=== PATIENT | female | born 1960 | race Caucasian/White ===

== ENCOUNTER → 2018-04-22 | Outpatient (CLI) | payer OTHER ==
[~2018-04-22] MED LIST: ACET500 PO; ALEVE220 MG PO; ALPR.25 PO; ALPR.5 PO; ARIP10; ARIP10 PO; ARIP15; ASPI325EC PO; BENADRYL PO; BUPR150ER PO; BUPR150T2; BUPR150T2 PO; BUSP10; Budeprion Xl300 MG PO; CALCAVITDA; CEPH500 PO; CLON1; CLOT1TC TOP; CYCL10 PO; DOCU100 PO; FISH1000; FURO20 PO; GABA300 PO; GABA400 PO; HYDACE5 PO; HYDPAM25 PO; HYDPAM50; K-Dur10 MEQ; LISI20 PO; LORA1 PO; Lisinopril2.5 MG PO; Loxapine10 MG PO; Loxapine5 MG; METO10 PO; Mobic7.5 MG PO; NAPR500 PO; NAPR550 PO; Norco 5-325 Ta1 EACH PO; OXCA300; OXYACE5T PO; PENVK500 PO; POTCHL10ER PO; Percocet 5-3251 EACH PO; ROXICODONE5 MG PO; RXCYCL10 PO; RXHYDACE PO; RXPENVK250 PO; RXTRAM50 PO; TRAM50 PO; TRIH2; Trihexyphenidyl5 MG PO
[2018-04-25 14:08] LABS: HPV 16 Negative (Negative); HPV 18 Negative (Negative); HPV OTHER HR TYPES Negative (Negative)
== END ==
LOC: LAB 14:51 → LAB SHORT 14:51
PROVIDERS: Nurse Practitioner Women's Health
DX: Z12.4 Encounter for screening for malignant neoplasm of cervix (principal); Z91.89 Other specified personal risk factors, not elsewhere classified
CPT/HCPCS: 87624; G0123

== ENCOUNTER → 2018-06-17 | Outpatient (CLI) | payer OTHER ==
[2018-06-19 15:07] LABS: COTININE Negative ng/mL ({null, Cutoff=300})
== END | disposition home or self-care (01) ==
LOC: LAB 10:20 → LAB SHORT 10:20
PROVIDERS: Podiatrist Foot & Ankle Surgery
DX: F17.210 Nicotine dependence, cigarettes, uncomplicated (principal)

== ENCOUNTER 2018-07-21 12:24 | Day surgery (SDC) | payer OTHER ==
[~2018-07-21] VITALS: Ht 160 cm; Wt 104.8 kg
[2018-07-21] MEDS ORDERED: TRAM50 (13:17)
[2018-07-21] MEDS ORDERED: CYCL10 (13:17)
[2018-07-21] MEDS ORDERED: MONT10T (13:18)
[2018-07-21] MEDS ORDERED: DICMIS50EC (13:18)
[2018-07-21] MEDS ORDERED: CHLO25B (13:18)
--- NOTE | 2018-07-21 13:28 | NUR ---
07/21/18 1328 Demetrius Pruitt 1ST IV IN LAC UNSUCCESSFUL, ORSC.BDK 2ND IV ATTEMPT IN LH SUCCESSFUL, ORSC.RXS
--- NOTE | 2018-07-21 14:13 | NUR ---
07/21/18 1413 Anjelica Romero GIVEN AT [address] RANJEET FISCHER FOR EXPIRATORY WHEEZES. LUNGS CLEAR T/O POST BREATHING TX. PT VSS, AND DENIES PAIN AND NAUSEA AT THIS TIME.
--- NOTE | 2018-07-21 15:03 | NUR ---
07/21/18 1503 Anjelica Romero LATE ENTRY PT INTO RECLINER AT 1416, STEADY DURIGN TRANSFER. MOM AT CHAIRSIDE. PT TOLERATING PO NOURISHMENT WELL. DENIES PAIN/NAUSEA AT THIS TIME. VSS. OPERATIVE LEG ELEVATED WITH PILLOW AND ICE FOR COMFORT. CALL LIGHT IN REACH. 1430 DISCUSSED DC INSTRUCTIONS WITH PT AND MOM, ANSWERED QUESTIONS AND DCD TO HOME VIA WC.
== END 2018-07-21 14:51 | disposition home or self-care (01) ==
LOC: ORSCSDS 12:24
PROVIDERS: Podiatrist Foot & Ankle Surgery
PROC: 0JBN0ZZ Excision of Right Lower Leg Subcutaneous Tissue and Fascia, Open Approach (ICD-10-PCS; principal; 2018-07-21 14:00)
DX: D17.79 Benign lipomatous neoplasm of other sites (principal); M79.7 Fibromyalgia; F20.9 Schizophrenia, unspecified; J45.909 Unspecified asthma, uncomplicated; F41.8 Other specified anxiety disorders; Z79.899 Other long term (current) drug therapy; F17.210 Nicotine dependence, cigarettes, uncomplicated
CPT/HCPCS: 88304; J0690; J1100; J1885; J2250; J2405; J2704; J3010; J7120

== ENCOUNTER 2018-10-10 06:06 | Day surgery (SDC) | payer OTHER ==
[~2018-10-10] VITALS: Ht 160 cm; Wt 104.9 kg
[~2018-10-10 06:06] MED LIST changes: +CHLO25B; +CHLO25B PO; +CYCL10; +DICLO GEL 1%-X1 EACH TOP; +DICMIS50EC; +MONT10T; +MONT10T PO; +TRAM50
[2018-10-10] MEDS ORDERED: MELO7.5 PO (06:42)
--- NOTE | 2018-10-10 06:55 | NUR ---
10/10/18 0655 Lobito Wiggins A FIRST THREE ATTEMPTS AT IV FAILED, 18 NOW PLACED IN RAC. TOLERATED WELL
== END 2018-10-10 14:55 | disposition home or self-care (01) ==
LOC: ORSCSDS 06:06
PROVIDERS: Podiatrist Foot & Ankle Surgery
PROC: 0JBP0ZZ Excision of Left Lower Leg Subcutaneous Tissue and Fascia, Open Approach (ICD-10-PCS; principal; 2018-10-10 07:30)
DX: D17.9 Benign lipomatous neoplasm, unspecified (principal); I10 Essential (primary) hypertension; F25.9 Schizoaffective disorder, unspecified; M79.7 Fibromyalgia; F31.9 Bipolar disorder, unspecified; J45.909 Unspecified asthma, uncomplicated; R73.9 Hyperglycemia, unspecified; E66.01 Morbid (severe) obesity due to excess calories; Z68.41 Body mass index [BMI] 40.0-44.9, adult; Z79.899 Other long term (current) drug therapy
CPT/HCPCS: 88304; J0690; J1100; J2250; J2405; J2704; J3010; J7120

== ENCOUNTER → 2019-12-14 | Outpatient (CLI) | payer OTHER ==
[~2019-12-14] MED LIST changes: +MELO7.5 PO
[2019-12-16 15:11] LABS: HPV 16 Negative (Negative); HPV 18 Negative (Negative); HPV OTHER HR TYPES Negative (Negative)
== END | disposition home or self-care (01) ==
LOC: LAB 20:52 → LAB SHORT 20:52
PROVIDERS: Physician Assistant
DX: Z01.419 Encounter for gynecological examination (general) (routine) without abnormal findings (principal)
CPT/HCPCS: 87624; G0145

== ENCOUNTER → 2023-01-23 | Outpatient (CLI) | payer OTHER ==
[2023-01-24 11:20] LABS: Candida species (DNA Probe) Negative (NEGATIVE); G. vaginalis (DNA Probe) Positive (NEGATIVE); T. vaginalis (DNA Probe) Positive (NEGATIVE)
== END | disposition home or self-care (01) ==
LOC: LAB 17:58 → LAB SHORT 17:58
PROVIDERS: Physician Assistant
DX: L29.3 Anogenital pruritus, unspecified (principal)
CPT/HCPCS: 87480; 87510; 87660

== ENCOUNTER → 2023-01-28 | Outpatient (CLI) | payer OTHER ==
[2023-01-29 11:36] LABS: Stool Occult Bld Immuno 1 Negative (NEGATIVE)
== END | disposition home or self-care (01) ==
LOC: LAB SHORT 12:07 → LAB 12:07
PROVIDERS: Physician Assistant
DX: Z12.11 Encounter for screening for malignant neoplasm of colon (principal); Z12.12 Encounter for screening for malignant neoplasm of rectum
CPT/HCPCS: G0328

== ENCOUNTER → 2024-04-12 | Outpatient (CLI) | payer MEDICARE, OTHER ==
[2024-04-14 12:33] LABS: Stool Occult Bld Immuno 1 Negative (NEGATIVE)
== END | disposition home or self-care (01) ==
LOC: LAB → LAB SHORT
PROVIDERS: Physician Assistant
DX: Z12.11 Encounter for screening for malignant neoplasm of colon (principal); Z12.12 Encounter for screening for malignant neoplasm of rectum
CPT/HCPCS: 82274

== ENCOUNTER 2025-01-13 16:15 | Emergency (ER) | payer MEDICARE, OTHER ==
[~2025-01-13] VITALS: Ht 162.6 cm; Wt 95.2 kg
[2025-01-13 16:24] VITALS: BP 169/100
[2025-01-13 17:10] LABS: BASOPHILS ABSOLUTE AUTO 0.10 K/mm3 (0.00-0.23); BASOPHILS PERCENT AUTO 1 % (0-2); EOSINOPHILS ABSOLUTE AUTO 0.43 K/mm3 (0.00-0.68); EOSINOPHILS PERCENT AUTO 5 % (0-6); Hematocrit 41.1 % (33.0-51.0); Hemoglobin 14.1 g/dL (11.5-16.0); IMMATURE GRAN ABSOLUTE AUTO 0.01 K/mm3 (0.00-0.10); IMMATURE GRAN PERCENT AUTO 0 % (0-1); LYMPHOCYTES ABSOLUTE AUTO 2.01 K/mm3 (0.84-5.20); LYMPHOCYTES PERCENT AUTO 25 % (21-46); MONOCYTES ABSOLUTE AUTO 0.57 K/mm3 (0.16-1.47); MONOCYTES PERCENT AUTO 7 % (4-13); Mean Corpuscular HGB Conc 34.3 g/dL (31.5-36.5); Mean Corpuscular Volume 97 fL (80-100); NEUTROPHILS ABSOLUTE AUTO 5.09 K/mm3 (1.96-9.15); NEUTROPHILS PERCENT AUTO 62 % (41-73); NRBC ABSOLUTE 0.00 K/mm3 (0.00-0.02); NRBC Auto 0.0 /100 WBC (0.0-0.2); Platelet Count 268 K/mm3 (150-400); RDW Coefficient Variation 12.3 % (11.7-14.2); RDW Standard Deviation 43.6 fL (35.1-46.3)
[2025-01-13 17:45] LABS: Alanine Aminotransfer (ALT/SGP 22.0 U/L (12-78); Albumin, Blood 3.9 g/dL (3.4-5.0); Albumin/Globulin Ratio 1.2 (0.8-1.8); Anion Gap 6.0 mmol/L (3-11); Aspartate Aminotrans (AST/SGOT 15.0 U/L (12-37); Bilirubin, Total 0.6 mg/dL (0.1-1.0); Blood Urea Nitrogen 19.0 mg/dL (8-24); CO2, Blood 27.0 mmol/L (21-32); Calcium, Blood 9.7 mg/dL (8.5-10.1); Chloride, Blood 107.0 mmol/L (98-108); Creatinine, Blood 0.66 mg/dL (0.40-1.00); Globulin, Blood 3.3 g/dL (2.2-4.0); Glucose, Blood 109.0 mg/dL (70-99); Potassium, Blood 3.6 mmol/L (3.5-5.5); Sodium, Blood 136.0 mmol/L (136-145); Total Protein, Blood 7.2 g/dL (6.4-8.2)
== END 2025-01-13 19:04 | disposition left against medical advice (07) ==
LOC: ER 16:15
PROVIDERS: Student in an Organized Health Care Education/Training Program
DX: R07.9 Chest pain, unspecified (principal); M25.512 Pain in left shoulder; Z53.21 Procedure and treatment not carried out due to patient leaving prior to being seen by health care provider
CPT/HCPCS: 71046; 80053; 83690; 84484; 85025; 93005; 93010